=== PATIENT | male | born 1960 | race African-American/Black ===

== ENCOUNTER 2024-02-22 18:52 | Inpatient (IN) | payer OTHER ==
[~2024-02-22] VITALS: Ht 177.8 cm; Wt 107.5 kg
[2024-02-22] MEDS ORDERED: MAGN400O6 PO (19:18)
[2024-02-22] MEDS ORDERED: SENN1TAB59 PO (19:18)
[2024-02-22] MEDS ORDERED: ATOR20TA PO (19:18)
[2024-02-22] MEDS ORDERED: DOCU100T2 PO (19:18)
[2024-02-22] MEDS ORDERED: HYDR-3980 PO (19:18)
[2024-02-22] MEDS ORDERED: SPIR50TA5 PO (19:18)
[2024-02-22] MEDS ORDERED: ACET325T53 PO (19:18)
[2024-02-22] MEDS ORDERED: BISA10SU95 RC (19:18)
[2024-02-22] MEDS ORDERED: AMLO-212 PO (19:18)
[2024-02-22] MEDS ORDERED: MULT-1045 PO (19:18)
[2024-02-22] MEDS ORDERED: GABA-532 PO (19:18)
[2024-02-22] MEDS ORDERED: SODI100010 PO (19:18)
[2024-02-22] MEDS ORDERED: FURO80TA3 PO (19:18)
[2024-02-22] MEDS ORDERED: BACL10TA PO (19:18)
[2024-02-22] MEDS ORDERED: METO50TA16 PO (19:18)
[2024-02-22] MEDS ORDERED: ALLO100T PO (19:18)
[2024-02-22] MEDS ORDERED: APIX2.5T PO (19:18)
[2024-02-22] MEDS: IV NS 1000 ML 1,000 ML IV ONE (19:44)
[2024-02-22 19:54] LABS: BASOPHILS % (AUTO) 0.5 % (0.0-2.0); EOSINOPHILS # (AUTO) 0.1 K/uL (0.0-0.7); EOSINOPHILS % (AUTO) 0.6 % (0.0-7.0); HEMATOCRIT 50.1 % (36.7-47.1); LYMPHOCYTES # (AUTO) 2.8 K/uL (0.8-4.8); LYMPHOCYTES % (AUTO) 31.1 % (20.5-51.5); MEAN CORPUSCULAR HEMOGLOBIN 28.5 uug (23.8-33.4); MEAN CORPUSCULAR HGB CONC 34 g/dL (32.5-36.3); MEAN CORPUSCULAR VOLUME 84.1 fL (73.0-96.2); MONOCYTES # (AUTO) 1.2 K/uL (0.1-1.30); MONOCYTES % (AUTO) 13.2 % (0.0-11.0); NEUTROPHILS % (AUTO) 54.6 % (38.5-71.5); PLATELET COUNT (AUTO) 252 K/uL (152-348); RED BLOOD CELL COUNT(AUTO) 5.96 MIL/uL (4.06-5.63); RED CELL DISTRIBUTION WIDTH 14.4 % (12.1-16.2); WHITE BLOOD COUNT (AUTO) 9.1 K/uL (3.6-10.2)
[2024-02-22 19:57] LABS: CALCIUM 9.5 mg/dL (8.5-10.1); CREATININE 1.3 mg/dL (0.6-1.3); POTASSIUM 4.8 mmol/L (3.5-5.1)
[2024-02-22 20:10] LABS: ALBUMIN 3.8 g/dL (3.4-5.0); BILIRUBIN,TOTAL 1.1 mg/dL (0.2-1.0); TOTAL PROTEIN, SERUM 8.2 g/dL (6.4-8.2)
[2024-02-22 21:50] LABS: *BILIRUBIN,URIN 1+ (NEGATIVE); *BLOOD, URINE NEGATIVE (NEGATIVE); *CLARITY,URINE CLEAR (CLEAR); *COLOR,URINE YELLOW (YELLOW); *KETONES,URINE 1+ (NEGATIVE); *PROTEIN,URINE NEGATIVE (NEGATIVE); LEUKOCYTE ESTERASE ,URINE TRACE (NEGATIVE); NITRITE, URINE NEGATIVE (NEGATIVE); PH,URINE 5.5 (5.0-8.0); UGLUCOSE NEGATIVE (NEGATIVE)
[2024-02-22 22:35] LABS: BACTERIA,URINE FEW /HPF (NONE SEEN); SQUAMOUS EPITHELIAL CELL,UR MODERATE /HPF (NONE SEEN); WBC,URINE 0-3 /HPF (0-3)
[2024-02-22 22:36] LABS: MUCUS,URINE FEW /LPF (0-FEW)
[2024-02-23 14:09] VITALS: BP 137/92; TEMP 98.2; O2SAT 99
[2024-02-23 16:31] VITALS: BP 129/91; TEMP 98.8; O2SAT 97
[2024-02-23] MEDS ORDERED: ACETAMINOPHEN 325 MG TABLET PO PRN (19:30)
[2024-02-23] MEDS ORDERED: ACETAMINOPHEN 325 MG TABLET-SA PATIENTS-PAIN ONLY PO PRN (19:30)
[2024-02-23] MEDS ORDERED: MAGNESIUM HYDROXIDE 30 ML LIQUID UDC PO PRN ×2 (19:30)
[2024-02-23] MEDS ORDERED: HYDROCODONE/APAP 10-325 MG TABLET PO PRN (19:30)
[2024-02-23] MEDS ORDERED: ONDANSETRON 4 MG/2 ML VIAL IV PRN (19:30)
[2024-02-23] MEDS ORDERED: REMEDY ESSENTIAL ZINC PASTE 113 GM TP PRN (19:30)
[2024-02-23] MEDS ORDERED: BISACODYL 10 MG SUPP.RECT RC PRN (19:30)
[2024-02-23 20:00] VITALS: BP 131/89; TEMP 98; O2SAT 97
[2024-02-23] MEDS: CEphaleXIN 500 MG CAPSULE PO SCH (21:02)
[2024-02-23] MEDS: ATORVASTATIN 20 MG TABLET PO SCH (21:03)
[2024-02-23] MEDS: SENNOSIDES/DOCUSATE SODIUM TABLET PO SCH (21:03)
[2024-02-24] MEDS: IV NS 1000 ML 1,000 ML IV PRN (03:35)
[2024-02-24 06:00] VITALS: BP 144/97; TEMP 98; O2SAT 97
[2024-02-24 08:01] LABS: BASOPHILS # (AUTO) 0.1 K/UL (0.0-0.2); BASOPHILS % (AUTO) 0.5 % (0.0-2.0); EOSINOPHILS % (AUTO) 0.4 % (0.0-7.0); HEMOGLOBIN 16.2 g/dL (12.5-16.3); LYMPHOCYTES # (AUTO) 2.4 K/uL (0.8-4.8); LYMPHOCYTES % (AUTO) 22.3 % (20.5-51.5); MEAN CORPUSCULAR HEMOGLOBIN 28.6 uug (23.8-33.4); MEAN CORPUSCULAR HGB CONC 33 g/dL (32.5-36.3); MEAN CORPUSCULAR VOLUME 86.5 fL (73.0-96.2); MONOCYTES # (AUTO) 2.2 K/uL (0.1-1.30); MONOCYTES % (AUTO) 20.8 % (0.0-11.0); PLATELET COUNT (AUTO) 219 K/uL (152-348); RED BLOOD CELL COUNT(AUTO) 5.66 MIL/uL (4.06-5.63); RED CELL DISTRIBUTION WIDTH 14.5 % (12.1-16.2); WHITE BLOOD COUNT (AUTO) 10.7 K/uL (3.6-10.2)
[2024-02-24 08:07] LABS: DIFFERENTIAL COMMENT 1
[2024-02-24] MEDS: BACLOFEN 10 MG TABLET PO SCH (08:51)
[2024-02-24] MEDS: GABAPENTIN 100 MG CAPSULE PO SCH (08:52)
[2024-02-24] MEDS: METOPROLOL TARTRATE 50 MG TABLET PO SCH (08:52)
[2024-02-24] MEDS: APIXABAN 2.5 MG TABLET PO SCH (08:52)
[2024-02-24] MEDS: AMLODIPINE 5 MG TABLET PO SCH (08:52)
[2024-02-24] MEDS: ALLOPURINOL 100 MG TABLET PO SCH (08:53)
[2024-02-24 10:44] LABS: THYROID STIMULATING HORMONE 0.848 mIU/mL (0.358-3.740)
[2024-02-24 11:49] VITALS: BP 128/79; TEMP 98.8; O2SAT 98
[2024-02-24 12:11] LABS: BAND % (MANUAL) 1 % (0-10); EOSINOPHILS % (MANUAL) 1 % (0-8); LYMPHOCYTES % (MANUAL) 24 % (20-40); MONOCYTES % (MANUAL) 13 % (2-10); NEUTROPHILS % (MANUAL) 61 % (42-75)
[2024-02-24 12:12] LABS: PLATELET ESTIMATE ADEQUATE
[2024-02-24 12:13] LABS: ANISOCYTOSIS 1+
[2024-02-24] MEDS: OLANZAPINE 10 MG VIAL IM ONE (13:43)
[2024-02-24 16:13] VITALS: BP 119/77; TEMP 98.7; O2SAT 97
[2024-02-24 20:15] VITALS: BP 116/76; TEMP 98.6; O2SAT 98
[2024-02-25] MEDS: QUETIAPINE FUMARATE 25 MG TABLET PO SCH (13:00)
[2024-02-25 16:00] VITALS: BP 125/75; TEMP 97.6; O2SAT 93
[2024-02-25 20:20] VITALS: BP 119/84; TEMP 98.2; O2SAT 100
[2024-02-25] MEDS: MIRTAZAPINE 15 MG TABLET PO SCH (21:00)
[2024-02-26 05:42] VITALS: BP 122/77; TEMP 98.6; O2SAT 100
[2024-02-26 08:00] VITALS: BP 119/81; TEMP 98.8; O2SAT 99
[2024-02-26 12:00] VITALS: BP 125/78; TEMP 97.2; O2SAT 99
[2024-02-26 16:00] VITALS: BP 116/84; TEMP 98.6; O2SAT 98
[2024-02-26 19:45] VITALS: BP 125/56; TEMP 99.4; O2SAT 96
[2024-02-27 06:29] VITALS: BP 140/80; TEMP 99.3; O2SAT 96
[2024-02-27 07:04] LABS: BASOPHILS # (AUTO) 0.1 K/UL (0.0-0.2); BASOPHILS % (AUTO) 0.7 % (0.0-2.0); EOSINOPHILS # (AUTO) 0.1 K/uL (0.0-0.7); EOSINOPHILS % (AUTO) 1.1 % (0.0-7.0); HEMOGLOBIN 14.3 g/dL (12.5-16.3); LYMPHOCYTES # (AUTO) 2.2 K/uL (0.8-4.8); LYMPHOCYTES % (AUTO) 24.8 % (20.5-51.5); MEAN CORPUSCULAR HGB CONC 34 g/dL (32.5-36.3); MEAN CORPUSCULAR VOLUME 85.5 fL (73.0-96.2); MONOCYTES # (AUTO) 1.5 K/uL (0.1-1.30); MONOCYTES % (AUTO) 16.9 % (0.0-11.0); NEUTROPHILS # (AUTO) 5.1 K/uL (1.8-8.9); NEUTROPHILS % (AUTO) 56.5 % (38.5-71.5); PLATELET COUNT (AUTO) 260 K/uL (152-348); RED BLOOD CELL COUNT(AUTO) 4.92 MIL/uL (4.06-5.63); RED CELL DISTRIBUTION WIDTH 14.5 % (12.1-16.2)
[2024-02-27 07:05] LABS: DIFFERENTIAL COMMENT 1
[2024-02-27 07:17] LABS: CREATININE 0.8 mg/dL (0.6-1.3); MAGNESIUM 2.2 mg/dL (1.8-2.4); POTASSIUM 4.1 mmol/L (3.5-5.1)
[2024-02-27] MEDS: CLOTRIMAZOLE 1% CREAM 30 GM TUBE TOP SCH (08:32)
[2024-02-27] MEDS: AMMONIUM LACTATE 12% LOTION 225 GM BOTTLE TP SCH (08:33)
[2024-02-27 08:36] LABS: EOSINOPHILS % (MANUAL) 1 % (0-8); LYMPHOCYTES % (MANUAL) 27 % (20-40); MONOCYTES % (MANUAL) 14 % (2-10); NEUTROPHILS % (MANUAL) 58 % (42-75)
[2024-02-27 08:37] LABS: PLATELET ESTIMATE ADEQUATE
[2024-02-27 08:38] LABS: ANISOCYTOSIS 1+
[2024-02-27 08:42] VITALS: BP 125/99; TEMP 99.3; O2SAT 98
[2024-02-27] MEDS ORDERED: QUET25TA36 PO (11:00)
[2024-02-27] MEDS ORDERED: MIRT-93 PO (11:00)
[2024-02-27] MEDS ORDERED: CEPH500C2 PO (11:00)
[2024-02-27 11:41] VITALS: BP 102/73; TEMP 98.9; O2SAT 96
== END 2024-02-27 14:40 | DRG 422 ==
LOC: ER 18:54 → MEDSURG3 02-23 12:52
PROVIDERS: ADMIT Nurse Practitioner Acute Care; ATTEND Nurse Practitioner Acute Care
DX: E86.0 Dehydration (principal); G93.41 Metabolic encephalopathy; I50.33 Acute on chronic diastolic (congestive) heart failure; E87.29 Other acidosis; F03.918 Unspecified dementia, unspecified severity, with other behavioral disturbance; D68.59 Other primary thrombophilia; I82.502 Chronic embolism and thrombosis of unspecified deep veins of left lower extremity; N17.9 Acute kidney failure, unspecified; E87.1 Hypo-osmolality and hyponatremia; R17 Unspecified jaundice; M84.454A Pathological fracture, pelvis, initial encounter for fracture; I11.0 Hypertensive heart disease with heart failure; I50.32 Chronic diastolic (congestive) heart failure; D75.1 Secondary polycythemia; I89.0 Lymphedema, not elsewhere classified; Z86.718 Personal history of other venous thrombosis and embolism; Z74.01 Bed confinement status; R74.8 Abnormal levels of other serum enzymes; M15.9 Polyosteoarthritis, unspecified; F03.93 Unspecified dementia, unspecified severity, with mood disturbance; R62.7 Adult failure to thrive; Z68.34 Body mass index [BMI] 34.0-34.9, adult; I87.2 Venous insufficiency (chronic) (peripheral); L85.3 Xerosis cutis; L60.3 Nail dystrophy; M10.9 Gout, unspecified; Z86.711 Personal history of pulmonary embolism; Z79.01 Long term (current) use of anticoagulants; R00.0 Tachycardia, unspecified; M25.552 Pain in left hip; M25.551 Pain in right hip
CPT/HCPCS: 36415; 70030-TC; 70450; 71045; 83605; 83735; 84100; 84443; 84484; 85025; 93005; A4606; A4663; C1758; G0378; J2358; J7040; J8499

== ENCOUNTER 2024-08-05 20:57 | Emergency (ER) | payer OTHER ==
[~2024-08-05] VITALS: Ht 177.8 cm; Wt 107.5 kg
[~2024-08-05 20:57] MED LIST: ACET325T53 PO; ALLO100T PO; AMLO-212 PO; APIX2.5T PO; ATOR20TA PO; BACL10TA PO; BISA10SU95 RC; CEPH500C2 PO; DOCU100T2 PO; FURO80TA3 PO; GABA-532 PO; HYDR-3980 PO; MAGN400O6 PO; METO50TA16 PO; MIRT-93 PO; MULT-1045 PO; QUET25TA36 PO; SENN1TAB59 PO; SODI100010 PO; SPIR50TA5 PO
[2024-08-05] MEDS ORDERED: AMMO385C4 TP (21:14)
[2024-08-05 22:00] LABS: BASOPHILS # (AUTO) 0.2 K/UL (0.0-0.2); BASOPHILS % (AUTO) 3.3 % (0.0-2.0); EOSINOPHILS # (AUTO) 0.2 K/uL (0.0-0.7); EOSINOPHILS % (AUTO) 2.8 % (0.0-7.0); HEMATOCRIT 46.8 % (36.7-47.1); HEMOGLOBIN 15.1 g/dL (12.5-16.3); LYMPHOCYTES # (AUTO) 2.2 K/uL (0.8-4.8); LYMPHOCYTES % (AUTO) 37.8 % (20.5-51.5); MEAN CORPUSCULAR HEMOGLOBIN 27.4 uug (23.8-33.4); MEAN CORPUSCULAR HGB CONC 32 g/dL (32.5-36.3); MEAN CORPUSCULAR VOLUME 85.2 fL (73.0-96.2); MONOCYTES # (AUTO) 0.7 K/uL (0.1-1.30); MONOCYTES % (AUTO) 12.3 % (0.0-11.0); NEUTROPHILS # (AUTO) 2.5 K/uL (1.8-8.9); NEUTROPHILS % (AUTO) 43.8 % (38.5-71.5); PLATELET COUNT (AUTO) 264 K/uL (152-348); RED BLOOD CELL COUNT(AUTO) 5.49 MIL/uL (4.06-5.63); RED CELL DISTRIBUTION WIDTH 15.2 % (12.1-16.2); WHITE BLOOD COUNT (AUTO) 5.7 K/uL (3.6-10.2)
[2024-08-05 22:02] LABS: DIFFERENTIAL COMMENT 1
[2024-08-05 22:07] LABS: CALCIUM 9.5 mg/dL (8.5-10.1); CARBON DIOXIDE 28 mmol/L (21-32); CHLORIDE 105 mmol/L (98-107); CREATININE 0.8 mg/dL (0.6-1.3); GLUCOSE 112 mg/dL (74-106); POTASSIUM 4.3 mmol/L (3.5-5.1); SODIUM SERUM 143 mmol/L (136-145); UREA NITROGEN, BLOOD 11 mg/dL (7-18)
[2024-08-05 22:12] LABS: AMMONIA < 10 umol/L (11-32)
[2024-08-05 22:19] LABS: ETHANOL < 3 MG/DL (0-10)
[2024-08-05 22:23] LABS: ALANINE AMINOTRANSFERASE 17 U/L (16-63); ALBUMIN 3.4 g/dL (3.4-5.0); ALKALINE PHOSPHATASE 132 U/L (50-136); ASPARTATE AMINOTRANSFERASE 12 U/L (15-37); BILIRUBIN,DIRECT 0.2 mg/dL (0.0-0.2); BILIRUBIN,TOTAL 1.9 mg/dL (0.2-1.0); TOTAL PROTEIN, SERUM 7.2 g/dL (6.4-8.2)
[2024-08-05 22:24] LABS: ACETAMINOPHEN < 2.0 ug/mL (10-30)
[2024-08-05 22:37] LABS: *BILIRUBIN,URIN NEGATIVE (NEGATIVE); *BLOOD, URINE NEGATIVE (NEGATIVE); *CLARITY,URINE CLEAR (CLEAR); *COLOR,URINE YELLOW (YELLOW); *KETONES,URINE TRACE (NEGATIVE); *PROTEIN,URINE NEGATIVE (NEGATIVE); *UROBILINOGEN,URINE 0.2 E.U./dl (NORMAL); LEUKOCYTE ESTERASE ,URINE NEGATIVE (NEGATIVE); NITRITE, URINE NEGATIVE (NEGATIVE); PH,URINE 5.5 (5.0-8.0); UGLUCOSE NEGATIVE (NEGATIVE)
[2024-08-05 22:52] LABS: *AMPHETAMINE, URINE NEGATIVE (NEGATIVE); *BARBITURATE, URINE NEGATIVE (NEGATIVE); *BENZODIAZEPINE, URINE NEGATIVE (NEGATIVE); *CANNABINOID, URINE NEGATIVE (NEGATIVE); *COCCAINE, URINE NEGATIVE (NEGATIVE); *OPIATE, URINE NEGATIVE (NEGATIVE); *PHENCYCLIDINE SCREEN,URINE NEGATIVE (NEGATIVE); FENTANYL, URINE NEGATIVE (NEGATIVE)
[2024-08-05 23:16] LABS: BACTERIA,URINE FEW /HPF (NONE SEEN); RBC,URINE 0-3 /HPF (0-3); WBC,URINE 0-3 /HPF (0-3)
[2024-08-05 23:17] LABS: SQUAMOUS EPITHELIAL CELL,UR MODERATE /HPF (NONE SEEN); URIC ACID CRYSTALS,URINE FEW /HPF (NONE SEEN)
[2024-08-06 02:08] VITALS: BP 107/87; TEMP 98; O2SAT 99
== END 2024-08-06 02:05 ==
LOC: ER 21:01
DX: R03.0 Elevated blood-pressure reading, without diagnosis of hypertension (principal); E86.0 Dehydration; G93.41 Metabolic encephalopathy; I50.33 Acute on chronic diastolic (congestive) heart failure; M10.9 Gout, unspecified; M81.0 Age-related osteoporosis without current pathological fracture; Z79.01 Long term (current) use of anticoagulants; Z79.899 Other long term (current) drug therapy; Z86.711 Personal history of pulmonary embolism; Z86.718 Personal history of other venous thrombosis and embolism
CPT/HCPCS: 36415; 71045; 83605; 84484; 85025; 85730; 87040; A4606; A4663; C1758; G0480

== ENCOUNTER 2025-06-11 14:59 | Inpatient (IN) | payer MEDICARE, OTHER ==
[~2025-06-11] VITALS: Ht 182.9 cm; Wt 79.4 kg
[~2025-06-11 14:59] MED LIST changes: +AMMO385C4 TP; -BACL10TA PO; -CEPH500C2 PO; -SODI100010 PO
[2025-06-11] MEDS ORDERED: TAMS-3 PO (15:45)
[2025-06-11] MEDS ORDERED: DIVA500T2 PO (15:45)
[2025-06-11 18:15] LABS: PLATELET COUNT (AUTO) 220 K/uL (152-348); RED BLOOD CELL COUNT(AUTO) 5.33 MIL/uL (4.06-5.63); RED CELL DISTRIBUTION WIDTH 14.9 % (12.1-16.2); WHITE BLOOD COUNT (AUTO) 6.3 K/uL (3.6-10.2)
[2025-06-11 18:23] LABS: CREATININE 0.7 mg/dL (0.6-1.3); SODIUM SERUM 132 mmol/L (136-145); UREA NITROGEN, BLOOD 23 mg/dL (7-18)
[2025-06-11 18:26] LABS: *BILIRUBIN,URIN NEGATIVE (NEGATIVE); *BLOOD, URINE NEGATIVE (NEGATIVE); *CLARITY,URINE CLEAR (CLEAR); *COLOR,URINE YELLOW (YELLOW); *KETONES,URINE NEGATIVE (NEGATIVE); *PROTEIN,URINE NEGATIVE (NEGATIVE); *UROBILINOGEN,URINE 0.2 E.U./dl (NORMAL); LEUKOCYTE ESTERASE ,URINE NEGATIVE (NEGATIVE); NITRITE, URINE NEGATIVE (NEGATIVE); UGLUCOSE NEGATIVE (NEGATIVE)
[2025-06-11 18:53] LABS: ASPARTATE AMINOTRANSFERASE 31 U/L (15-37); TOTAL PROTEIN, SERUM 7.3 g/dL (6.4-8.2)
[2025-06-11 21:00] VITALS: BP 137/75
[2025-06-11] MEDS ORDERED: ATORVASTATIN 20 MG TABLET PO SCH (21:00)
[2025-06-11] MEDS ORDERED: HYDROCODONE/APAP 10-325 MG TABLET PO PRN (21:00)
[2025-06-11] MEDS ORDERED: ONDANSETRON 4 MG/2 ML VIAL IV PRN (21:00)
[2025-06-11] MEDS ORDERED: MAGNESIUM HYDROXIDE 30 ML LIQUID UDC PO PRN (21:00)
[2025-06-11] MEDS ORDERED: OLANZAPINE 10 MG VIAL IM PRN (21:00)
[2025-06-11] MEDS ORDERED: BISACODYL 10 MG SUPP.RECT RC PRN (21:00)
[2025-06-11] MEDS ORDERED: ACETAMINOPHEN 325 MG TABLET PO PRN (21:45)
[2025-06-11] MEDS: ATORVASTATIN 20 MG TABLET PO SCH (22:28)
[2025-06-11] MEDS: MIRTAZAPINE 15 MG TABLET PO SCH (22:28)
[2025-06-11] MEDS: TAMSULOSIN HCL 0.4 MG CAP.SR.24H PO SCH (22:28)
[2025-06-11] MEDS: SENNOSIDES/DOCUSATE SODIUM TABLET PO SCH (22:28)
[2025-06-11 22:30] VITALS: BP 135/68; TEMP 98.2; O2SAT 98
[2025-06-11] MEDS: OLANZAPINE 10 MG VIAL IM STA (22:41)
[2025-06-12 04:00] VITALS: BP 116/84; TEMP 98.2; O2SAT 94
[2025-06-12] MEDS: PANTOPRAZOLE SODIUM 40 MG TABLET.DR PO SCH (06:14)
[2025-06-12] MEDS: DIVALPROEX 500 MG TABLET.DR PO SCH (08:39)
[2025-06-12] MEDS: SPIRONOLACTONE 50 MG TABLET PO SCH (08:39)
[2025-06-12] MEDS: APIXABAN 2.5 MG TABLET PO SCH (08:39)
[2025-06-12] MEDS: AMLODIPINE 5 MG TABLET PO SCH (08:40)
[2025-06-12] MEDS: QUETIAPINE FUMARATE 25 MG TABLET PO SCH (08:40)
[2025-06-12] MEDS: METOPROLOL TARTRATE 50 MG TABLET PO SCH (08:40)
[2025-06-12] MEDS: GABAPENTIN 100 MG CAPSULE PO SCH (08:40)
[2025-06-12] MEDS: ALLOPURINOL 100 MG TABLET PO SCH (08:41)
[2025-06-12] MEDS: MULTIVITAMINS,THERAPEUTIC TABLET PO SCH (08:41)
[2025-06-12 11:34] VITALS: BP 106/62; TEMP 98.4; O2SAT 94
[2025-06-12] MEDS ORDERED: RISP0.2515 PO (12:25)
[2025-06-12] MEDS ORDERED: SENN8.6T19 PO (12:26)
[2025-06-12 19:51] VITALS: BP 95/59; TEMP 99.2; O2SAT 99
[2025-06-12] MEDS: DOCUSATE SODIUM 100 MG CAPSULE PO SCH (20:58)
[2025-06-13 04:35] VITALS: BP 100/58; TEMP 98.3; O2SAT 95
[2025-06-13 07:53] VITALS: BP 96/55; TEMP 98.2; O2SAT 97
[2025-06-13 15:44] VITALS: BP 96/52; TEMP 97.2; O2SAT 98
[2025-06-13 16:33] VITALS: BP 96/52
== END 2025-06-13 19:03 | DRG 640 ==
LOC: ER 14:59 → TELE3 21:29
PROVIDERS: ADMIT Internal Medicine; ATTEND Internal Medicine
DX: R62.7 Adult failure to thrive (principal); G92.8 Other toxic encephalopathy; E87.1 Hypo-osmolality and hyponatremia; D68.59 Other primary thrombophilia; F03.92 Unspecified dementia, unspecified severity, with psychotic disturbance; L97.528 Non-pressure chronic ulcer of other part of left foot with other specified severity; R41.82 Altered mental status, unspecified; Z68.23 Body mass index [BMI] 23.0-23.9, adult; I50.9 Heart failure, unspecified; M20.42 Other hammer toe(s) (acquired), left foot; L97.529 Non-pressure chronic ulcer of other part of left foot with unspecified severity; I11.0 Hypertensive heart disease with heart failure; I25.10 Atherosclerotic heart disease of native coronary artery without angina pectoris; Z86.711 Personal history of pulmonary embolism; Z79.01 Long term (current) use of anticoagulants; Z74.01 Bed confinement status; N40.0 Benign prostatic hyperplasia without lower urinary tract symptoms; Z91.199 Patient's noncompliance with other medical treatment and regimen due to unspecified reason; Z74.09 Other reduced mobility; E11.51 Type 2 diabetes mellitus with diabetic peripheral angiopathy without gangrene; M19.90 Unspecified osteoarthritis, unspecified site; F99 Mental disorder, not otherwise specified; M81.0 Age-related osteoporosis without current pathological fracture; E11.42 Type 2 diabetes mellitus with diabetic polyneuropathy; M10.9 Gout, unspecified
CPT/HCPCS: 36415; 71045; 83735; 85025; A4663; G0378; J2358; J8499